=== PATIENT | male | born 1950 | race Caucasian/White ===

== ENCOUNTER → 2016-10-01 | Outpatient (CLI) | payer MEDICARE, OTHER ==
--- NOTE | 2016-10-01 12:06 | XR ---
EXAMINATION TYPE: XR abdomen 1V DATE OF EXAM: 10/01/2016 12:00 PM COMPARISON: NONE HISTORY: Constipation FINDINGS: The osseous structures are intact. The bowel gas pattern is nonspecific. Arthropathy of the hip join ts noted. Previous surgery seen. Suggestive an ostomy within the right abdomen. Correlate for femoral acetabular impingement. Vascular calcification seen. IMPRESSION: 1. Nonspecific abdomen. Retained fecal debris noted throughout the colon.
== END | disposition home or self-care (01) ==
LOC: RADXRMAIN 11:33
PROVIDERS: ATTEND Physician Assistant
DX: K59.00 Constipation, unspecified (principal)
CPT/HCPCS: 74000

== ENCOUNTER 2016-10-11 12:37 | Emergency (ER) | payer MEDICARE, OTHER ==
[2016-10-11 13:19] VITALS: RESP 16; TEMP 97
[2016-10-11] MEDS ORDERED: SODIUM CHLORIDE 0.9% 1,000 ML IV STA (13:59)
--- NOTE | 2016-10-11 14:05 | ED ---
General Adult HPI - General Chief complaint: Abdominal Pain Stated complaint: Abdominal Pain Time Seen by Provider: 10/11/16 13:52 Source: patient, RN notes reviewed Mode of arrival: ambulatory Limitations: no limitations - History of Present Illness Initial comments: Patient 66-year-old male status post prostate and bladder surgery, who presents emergency room today with chief complaint of "constipation". Patient states that had surgery 3 weeks ago. He states that since that times had a difficult time having a bowel movement. He states not had a normal bowel movement since. States been having small bowel movements. Does admit that he's been using laxatives with little relief the symptoms. States does get sharp cramping type pains that come and go in his lower abdomen. He states that this times currently comfortable. Patient does admit his appetite has been somewhat decreased last few days but has been trying to drink lots of water. Patient denies any other complaints or associated symptoms. Patient denies any recent fever, chills, shortness of breath, chest pain, back pain, nausea or vomiting, numbness or tingling, dysuria or hematuria, constipation or diarrhea, headaches or visual changes, or any other complaints. - Related Data Home Medications Medication Instructions Recorded Confirmed Allopurinol [Zyloprim] 100 mg PO DAILY 05/06/16 10/11/16 Aspirin [Adult Low Dose Aspirin EC] 81 mg PO DAILY 05/06/16 10/11/16 Atenolol [Tenormin] 50 mg PO DAILY 05/06/16 10/11/16 INSULIN LISPRO (HumaLOG) [humaLOG] 16 unit SQ -BRKFST 05/06/16 10/11/16 INSULIN LISPRO (HumaLOG) [humaLOG] See Protocol SQ-PUMP -BRKFST 05/06/1610/11 Isosorbide Mononitrate [Isosorbide 30 mg PO DAILY 05/06/16 10/11/16 Mononitrate ER] Rosuvastatin [Crestor] 20 mg PO DAILY 05/06/16 10/11/16 amLODIPine [Norvasc] 10 mg PO DAILY 05/06/16 10/11/16 traMADol HCL [Ultram] 50 mg PO BID PRN 05/06/16 10/11/16 V-Go 40 1 dose SQ AC-BID 08/23/16 10/11/16 Previous Rx's Medication Instructions Recorded Sulfamethox-Tmp 800-160Mg [Bactrim 1 tab PO Q12HR #14 tab 10/11/16 DS 800-160 mg] Allergies Allergy/AdvReac Type Severity Reaction Status Date / Time atorvastatin calcium AdvReac muscle pain Verified 10/11/16 14:35 [From Lipitor] Review of Systems ROS Statement: Those systems with pertinent positive or pertinent negative responses have been documented in the HPI. ROS Other: All systems not noted in ROS Statement are negative. Past Medical History Past Medical History: Coronary Artery Disease (CAD), Cancer, Diabetes Mellitus, Hyperlipidemia, Hypertension, Myocardial Infarction (CT), Renal Disease Additional Past Medical History / Comment(s): bladder cancer, prostate cancer, KIDNEY STONES, ARTHRITIS,MURMUR, CT-1999, HEMORRHOIDS Last Myocardial Infarction Date:: 1999 History of Any Multi-Drug Resistant Organisms: None Reported Past Surgical History: Appendectomy, Coronary Bypass/CABG, Heart Catheterization With Stent, Prostate Surgery Additional Past Surgical History / Comment(s): CYSTOSCCPY W/BX AND DOUBLE J CATHETER PLACE bladder and prostate removed 07-31-16 AT [facility]-HAS A UROSTOMY.QUAD CABG,JOES CATARACTS, LITHOTRIPSY Past Anesthesia/Blood Transfusion Reactions: No Reported Reaction Date of Last Stent Placement:: UNK Past Psychological History: No Psychological Hx Reported Smoking Status: Former smoker Past Alcohol Use History: None Reported Additional Past Alcohol Use History / Comment(s): STARTED SMOKING AT AGE 14, 1PPD, QUIT 1999 Past Drug Use History: None Reported - Past Family History Sister(s) Family Medical History: Renal Disease Additional Family Medical History / Comment(s): KIDNEY CANCER General Exam - General Exam Comments Initial Comments: General: The patient is awake and alert, in no distress, and does not appear acutely ill. Eye: Pupils are equal, round and reactive to light, extra-ocular movements are intact. No nystagmus. There is normal conjunctiva bilaterally. No signs of icterus. Ears, nose, mouth and throat: There are moist mucous membranes and no oral lesions. Neck: The neck is supple, there is no tenderness or JVD. Cardiovascular: There is a regular rate and rhythm. No murmur, rub or gallop is appreciated. Respiratory: Lungs are clear to auscultation, respirations are non-labored, breath sounds are equal. No wheezes, stridor, rales, or rhonchi. Gastrointestinal: Patient does have a bladder pouch to the right side of the abdomen. Abdomen soft on palpation no tenderness. Bowel sounds are normal. No CVA tenderness. No guarding. No rebound tenderness. Musculoskeletal: Normal ROM, no tenderness. Strength 5/5. Sensation intact. Pulses equal bilaterally 2+. Neurological: A&O x 3. CN II-XII intact, There are no obvious motor or sensory deficits. Coordination appears grossly intact. Speech is normal. Skin: Skin is warm and dry and no rashes or lesions are noted. Psychiatric: Cooperative, appropriate mood & affect, normal judgment. Limitations: no limitations Course Vital Signs 10/11/16 13:15 Temperature 97.0 F L Pulse Rate 60 Respiratory 16 Rate Blood Pressure 157/73 O2 Sat by Pulse 99 Oximetry Medical Decision Making - Medical Decision Making Patient labs reviewed here in the emergency room. X-ray reviewed unremarkable. Patient given enema here in the emergency room. Was able have bowel movement and feeling better. Patient will be discharged home. Patient urinalysis will be covered with antibiotic. Urine coming from a bagged with possible contaminated source. Patient is advised close follow-up over the next 2 days and have repeat urinalysis. Advised return if symptoms increase or worsen or for any other concerns. - Lab Data Result diagrams: 10/11/16 13:59 10/11/16 13:59 Lab Results 10/11/16 10/11/16 10/11/16 Range/Units 13:59 13:59 13:59 WBC 8.7 (3.8-10.6) k/uL RBC 4.60 (4.30-5.90) m/uL Hgb 13.8 (13.0-17.5) gm/dL Hct 43.4 (39.0-53.0) % MCV 94.5 (80.0-100.0) fL MCH 30.0 (25.0-35.0) pg MCHC 31.7 (31.0-37.0) g/dL RDW 14.0 (11.5-15.5) % Plt Count 256 (150-450) k/uL Neutrophils % 74 % Lymphocytes % 15 % Monocytes % 8 % Eosinophils % 1 % Basophils % 1 % Neutrophils # 6.4 (1.3-7.7) k/uL Lymphocytes # 1.3 (1.0-4.8) k/uL Monocytes # 0.7 (0-1.0) k/uL Eosinophils # 0.1 (0-0.7) k/uL Basophils # 0.1 (0-0.2) k/uL Sodium 144 (137-145) mmol/L Potassium 4.8 (3.5-5.1) mmol/L Chloride 105 (98-107) mmol/L Carbon Dioxide 26 (22-30) mmol/L Anion Gap 13 mmol/L BUN 24 H (9-20) mg/dL Creatinine 1.50 H (0.66-1.25) mg/dL Est GFR (MDRD) Af Amer 57 (>60 ml/min/1.73 sqM) Est GFR (MDRD) Non-Af 47 (>60 ml/min/1.73 sqM) Glucose 87 (74-99) mg/dL Calcium 9.5 (8.4-10.2) mg/dL Total Bilirubin 0.4 (0.2-1.3) mg/dL AST 17 (17-59) U/L ALT 25 (21-72) U/L Alkaline Phosphatase 87 (38-126) U/L Total Protein 6.9 (6.3-8.2) g/dL Albumin 3.8 (3.5-5.0) g/dL Urine Color Yellow Urine Appearance Cloudy (Clear) Urine pH 6.5 (5.0-8.0) Ur Specific [place] 1.011 (1.001-1.035) Urine Protein 3+ H (Negative) Urine Glucose (UA) Negative (Negative) Urine Ketones Negative (Negative) Urine Blood Small H (Negative) Urine Nitrate Positive (Negative) Urine Bilirubin Negative (Negative) Urine Urobilinogen <2.0 (<2.0) mg/dL Ur Leukocyte Esterase Moderate H (Negative) Urine RBC 12 H (0-5) /hpf Urine WBC 34 H (0-5) /hpf Urine WBC Clumps Rare H (None) /hpf Urine Bacteria Rare H (None) /hpf Hyaline Casts 16 H (0-2) /lpf Urine Mucus Rare H (None) /hpf Disposition Clinical Impression: Constipation Disposition: HOME SELF-CARE Condition: Good Instructions: Constipation (ED) Additional Instructions: Please follow-up with yoururologist as discussed. Please use antibiotic as prescribed and return here to emergency room if any symptoms increase or worsen or for any other concerns. Prescriptions: Sulfamethox-Tmp 800-160Mg [Bactrim DS 800-160 mg] 1 tab PO Q12HR #14 tab Time of Disposition: 16:40
[2016-10-11 14:18] LABS: Basophils # (A) 0.1 k/uL (0-0.2); Basophils % (A) 1 %; CH 30.1; CHCM 31.9; Eosinophils # (A) 0.1 k/uL (0-0.7); Eosinophils % (A) 1 %; HCT 43.4 % (39.0-53.0); HDW 2.52; HGB 13.8 gm/dL (13.0-17.5); Luc # (Auto) 0.13; Luc % (Auto) 2; Lymphocytes # (A) 1.3 k/uL (1.0-4.8); Lymphocytes % (A) 15 %; MCHC 31.7 g/dL (31.0-37.0); MCV 94.5 fL (80.0-100.0); Mean Platelet Volume 8.1; Monocytes # (A) 0.7 k/uL (0-1.0); Monocytes % (A) 8 %; Neutrophils # (A) 6.4 k/uL (1.3-7.7); Neutrophils % (A) 74 %; WBC 8.7 k/uL (3.8-10.6); WBC (Perox) 8.82
[2016-10-11 14:23] LABS: Appearance,Urine Cloudy (Clear); Bacteria,Urine Rare /hpf; Bilirubin,Urine Negative (Negative); Glucose,Urine (UA) Negative (Negative); Ketones,Urine Negative (Negative); Leukocyte Esterase,Urine Moderate (Negative); Mucus,Urine Rare /hpf; Nitrite,Urine Positive (Negative); PH, Urine 6.5 (5.0-8.0); Particle Count 16701; Protein,Urine 3+ (Negative); RBC,Urine 12 /hpf (0-5); Specific Gravity,Urine 1.011 (1.001-1.035); UA Billing (MACRO vs. MICRO) MICRO; Urobilinogen,Urine <2.0 mg/dL (<2.0); WBC,Urine 34 /hpf (0-5)
[2016-10-11 14:33] LABS: Calcium 9.5 mg/dL (8.4-10.2); Potassium 4.8 mmol/L (3.5-5.1); Total Bilirubin 0.4 mg/dL (0.2-1.3); Total Protein 6.9 g/dL (6.3-8.2)
--- NOTE | 2016-10-11 14:49 | XR ---
EXAMINATION TYPE: XR abdomen complete w decub DATE OF EXAM: 10/11/2016 2:41 PM HISTORY: Pain. Technique: 4 views of the abdomen are submitted. Comparison: None. Findings: There is no evidence for pneumoperitoneum. The bowel gas pattern is unremarkable as there is air throughout nondilated small and large bowel. No sizeable air fluid levels. No mass effects are seen. Right-sided ostomy noted. Postsurgical changes within the pelvis. No unusual calcifications. IMPRESSION: 1. Nonspecific nonobstructive bowel gas pattern
[2016-10-11 16:53] VITALS: BP 138/65; PULSE 65
== END 2016-10-11 16:52 | disposition home or self-care (01) ==
LOC: EC 12:37
DX: K59.00 Constipation, unspecified (principal); R10.30 Lower abdominal pain, unspecified; I25.10 Atherosclerotic heart disease of native coronary artery without angina pectoris; E11.9 Type 2 diabetes mellitus without complications; I25.2 Old myocardial infarction; I10 Essential (primary) hypertension; E78.5 Hyperlipidemia, unspecified; M19.90 Unspecified osteoarthritis, unspecified site; Z87.442 Personal history of urinary calculi; Z85.46 Personal history of malignant neoplasm of prostate; Z85.51 Personal history of malignant neoplasm of bladder; Z87.891 Personal history of nicotine dependence; Z79.899 Other long term (current) drug therapy; Z79.4 Long term (current) use of insulin; Z79.82 Long term (current) use of aspirin; Z88.8 Allergy status to other drugs, medicaments and biological substances; Z90.49 Acquired absence of other specified parts of digestive tract; Z95.5 Presence of coronary angioplasty implant and graft
CPT/HCPCS: 36415; 74020; 80053; 81001; 85025; 87086; 96360; 96361; 99284